=== PATIENT | female | born 1975 | race African-American/Black ===

== ENCOUNTER 2022-09-20 15:55 | Emergency (ER) | payer OTHER ==
[~2022-09-20] VITALS: Ht 175.3 cm; Wt 100.0 kg
[2022-09-20] MEDS ORDERED: ASPIRIN 81MG TABLET PO ONE (16:15)
[2022-09-20] MEDS ORDERED: DILTIAZEM HCL 5MG/ML 5ML VIAL IV ONE ×2 (16:15→22:15)
[2022-09-20 16:56] LABS: BASOPHILS % 0.7 % (0.0-2.0); EOSINOPHILS % 1.5 % (0.0-5.0); HEMATOCRIT. 47.1 % (36.0-48.0); HEMOGLOBIN. 16.2 g/dL (12.0-16.0); LYMPHOCYTES % 38.8 % (20.0-50.0); MEAN CORPUSCULAR HEMOGLOBIN 31.1 pg (28.0-32.0); MEAN CORPUSCULAR VOLUME 90.5 fL (81.0-99.0); MEAN PLATELET VOLUME 8.8 fl (7.4-10.4); MONOCYTES % 12.5 % (2.0-8.0); NEUTROPHILS % 46.5 % (40.0-76.0); PLATELET 286 x1000/uL (130-400); RED CELL DISTRIBUTION WIDTH 13.5 % (11.6-14.6)
[2022-09-20 16:59] LABS: CHLORIDE 105 mEq/L (98-107)
[2022-09-20 17:02] LABS: D-DIMER 3.66 mg/L FEU (<0.50); PROTHROMBIN TIME 10.3 sec (9.6-11.0)
[2022-09-20 17:14] LABS: ETHANOL BLOOD < 10 mg/dL
[2022-09-20 17:30] LABS: HCG SCREEN NEGATIVE
[2022-09-20] MEDS ORDERED: DILTIAZEM HCL 60MG TABLET PO ONE (18:00)
[2022-09-20 22:21] VITALS: BP 115/83
== END 2022-09-20 22:30 | disposition short-term general hospital (02) ==
LOC: ER 15:55 → ENRESERV 09-22 12:13
DX: I48.91 Unspecified atrial fibrillation (principal); R06.02 Shortness of breath; R42 Dizziness and giddiness; E11.9 Type 2 diabetes mellitus without complications; I10 Essential (primary) hypertension
CPT/HCPCS: 36415; 71045; 71275; 80053; 80320; 82962; 83880; 84443; 84484; 84703; 85025; 85379; 85610; 85730; 86850; 86900; 86901; 93005; 96374; 96376; 99291; J3490; Z7610; G0480